=== PATIENT | male | born 1960 | race Caucasian/White ===

== ENCOUNTER 2020-04-02 12:50 | Inpatient (IN) | payer BC ==
[~2020-04-02] VITALS: Ht 167.6 cm; Wt 72.6 kg
[2020-04-02 12:57] VITALS: BP 96/51
[2020-04-02] MEDS ORDERED: MULTIVITAMIN-12 10 ML, THIAMINE 100 MG, MAGNESIUM SULFATE 50% 2,000 MG, FOLIC ACID 1 MG... IV ONE ×5 (13:25)
[2020-04-02] MEDS ORDERED: NACL 0.9% 1,000 ML IV ONE (13:25)
[2020-04-02 13:48] LABS: BASOPHILS % (AUTO) 0.6 % (0.0-2.0); HEMATOCRIT 29.8 % (36-52); HEMOGLOBIN 9.6 g/dL (12.0-18.0); LYMPHOCYTES # (AUTO) 0.3 K/uL (2.0-11.5); MEAN CORPUSCULAR HEMOGLOBIN 28 pg (27-31); MEAN CORPUSCULAR HGB CONC 32 g/dL (33-37); MEAN CORPUSCULAR VOLUME 87.7 fL (80-94); MONOCYTES # (AUTO) 0.4 K/uL (0.8-1.0); MONOCYTES % (AUTO) 6.8 % (1.7-9.3); NEUTROPHILS # (AUTO) 4.9 K/uL (1.8-7.7); NEUTROPHILS % (AUTO) 87.6 % (42.2-75.2); PLATELET COUNT (AUTO) 70 K/uL (140-450); RED CELL DISTRIBUTION WIDTH 25.3 % (11.6-13.7); WHITE BLOOD COUNT (AUTO) 5.6 K/uL (4.8-10.8)
[2020-04-02] MEDS ORDERED: MULTIVITAMIN-12 10 ML, THIAMINE 100 MG, MAGNESIUM SULFATE 50% 2,000 MG, FOLIC ACID 1 MG... IV SCH ×10 (14:00→20:10)
[2020-04-02 14:08] LABS: ALBUMIN 3.2 g/dL (3.4-5.0); ANION GAP 27.2 (8-16); ASPARTATE AMINOTRANSFERASE 329 U/L (15-37); CARBON DIOXIDE 18.7 mmol/L (21-32); CHLORIDE 101 mmol/L (98-107); CREATININE 1.7 mg/dL (0.6-1.3); GFR ARICAN-AMERICAN 53 mL/min (>90); GLUCOSE 164 mg/dL (74-106); LIPASE 2165 U/L (73-393); PROTHROMBIN TIME 19.8 secs (10.8-13.4); SODIUM SERUM 144 mmol/L (136-145); TOTAL BILIRUBIN 11.5 mg/dL (0.0-1.0); UREA NITROGEN, BLOOD 31 mg/dL (7-18)
[2020-04-02 14:15] LABS: POTASSIUM 2.9 mmol/L (3.5-5.1)
[2020-04-02] MEDS ORDERED: KCL 20 MEQ/WATER INJ PREMIX 100 ML IV ONE (14:25)
[2020-04-02 16:30] VITALS: BP 107/47
[2020-04-02 20:00] VITALS: BP 101/49
[2020-04-02] MEDS ORDERED: HYDROcodone/APAP 5/325 MG 1 TAB TAB PO PRN (20:00)
[2020-04-02] MEDS ORDERED: ACETAMINOPHEN 325 MG TAB PO PRN (20:00)
[2020-04-02] MEDS ORDERED: LORazepam 2 MG/ML VIAL IVP PRN (20:00)
[2020-04-02] MEDS ORDERED: LACTULOSE 20 GM/30 ML UDC PO SCH (20:00)
[2020-04-02] MEDS ORDERED: DEXT 5% /NACL 0.9% 1,000 ML IV SCH (20:00)
[2020-04-02] MEDS ORDERED: ONDANSETRON 4 MG/2 ML VIAL IVP PRN (20:00)
[2020-04-02] MEDS ORDERED: DILTIAZEM 25 MG/5 ML VIAL IVP PRN (21:00)
[2020-04-02] MEDS ORDERED: DIGOXIN 0.25 MG/ML AMP IV SCH (21:00)
[2020-04-02] MEDS ORDERED: DILTIAZEM 25 MG/5 ML VIAL IVP SCH (21:00)
[2020-04-02] MEDS: DEXT 5% / NACL 0.45% 1,000 ML IV SCH (23:56)
[2020-04-03] VITALS: BP 98/47
[2020-04-03 04:00] VITALS: BP 148/57
[2020-04-03 06:44] LABS: AMYLASE 138 U/L (25-115)
[2020-04-03 06:54] LABS: ALBUMIN 2.6 g/dL (3.4-5.0); ANION GAP 16.7 (8-16); CARBON DIOXIDE 25.8 mmol/L (21-32); CREATININE 0.7 mg/dL (0.6-1.3); TOTAL BILIRUBIN 10.4 mg/dL (0.0-1.0)
[2020-04-03 07:08] LABS: BASOPHILS % (AUTO) 0.5 % (0.0-2.0); EOSINOPHILS % (AUTO) 0.5 % (0.0-4.0); HEMATOCRIT 27.6 % (36-52); HEMOGLOBIN 8.8 g/dL (12.0-18.0); LYMPHOCYTES # (AUTO) 0.8 K/uL (2.0-11.5); LYMPHOCYTES % (AUTO) 20.7 % (20.5-51.1); MEAN CORPUSCULAR HEMOGLOBIN 28 pg (27-31); MEAN CORPUSCULAR HGB CONC 32 g/dL (33-37); MEAN CORPUSCULAR VOLUME 88.9 fL (80-94); MONOCYTES # (AUTO) 0.3 K/uL (0.8-1.0); MONOCYTES % (AUTO) 6.7 % (1.7-9.3); NEUTROPHILS # (AUTO) 2.8 K/uL (1.8-7.7); NEUTROPHILS % (AUTO) 71.6 % (42.2-75.2); PLATELET COUNT (AUTO) 58 K/uL (140-450); RED BLOOD CELL COUNT(AUTO) 3.11 MIL/uL (4.20-6.10); RED CELL DISTRIBUTION WIDTH 25.1 % (11.6-13.7); WHITE BLOOD COUNT (AUTO) 3.9 K/uL (4.8-10.8)
[2020-04-03 07:16] LABS: MAGNESIUM 0.8 mg/dL (1.8-2.4); POTASSIUM 2.5 mmol/L (3.5-5.1)
[2020-04-03 07:17] LABS: PHOSPHORUS 0.6 mg/dL (2.5-4.9)
[2020-04-03 07:18] LABS: LIPASE 2826 U/L (73-393)
[2020-04-03] MEDS ORDERED: NACL 0.9% 1,000 ML IV SCH (07:50)
[2020-04-03 08:00] VITALS: BP 110/63
[2020-04-03] MEDS ORDERED: MAG SULF 2000 MG/WATER PREMIX 50 ML IV SCH (08:00)
[2020-04-03] MEDS: DEXT 5% / NACL 0.45% 1,000 ML IV SCH ×2 (11:02→19:35)
[2020-04-03] MEDS ORDERED: POTASSIUM PHOSPHATE 30 MM in NACL 0.9% 500 ML IV SCH (11:30)
[2020-04-03 12:00] VITALS: BP 91/52
[2020-04-03 13:35] LABS: APPEARANCE,URINE HAZY (CLEAR); BILIRUBIN,URINE 3+ (NEGATIVE); BLOOD, URINE NEGATIVE (NEGATIVE); COLOR,URINE ORANGE (YELLOW); LEUKOCYTE ESTERASE ,URINE NEGATIVE (NEGATIVE); NITRITE, URINE NEGATIVE (NEGATIVE); PH,URINE 6.5 (5.0-9.0); UGLUCOSE TRACE (NEGATIVE)
[2020-04-03 13:50] LABS: RBC,URINE 0-5 /HPF (0-5)
[2020-04-03 16:00] VITALS: BP 109/53
[2020-04-03] MEDS: DILTIAZEM 25 MG/5 ML VIAL IVP PRN ×2 (18:32→23:21)
[2020-04-03 20:00] VITALS: BP 165/69
[2020-04-04] VITALS: BP 148/77
[2020-04-04 04:00] VITALS: BP 136/71
[2020-04-04] MEDS: DEXT 5% / NACL 0.45% 1,000 ML IV SCH (05:37)
[2020-04-04 07:15] LABS: WHITE BLOOD COUNT (AUTO) 3.9 K/uL (4.8-10.8)
[2020-04-04 07:33] LABS: MONOCYTES # (AUTO) 0.3 K/uL (0.8-1.0); RED CELL DISTRIBUTION WIDTH 25.6 % (11.6-13.7)
[2020-04-04 07:40] LABS: BASOPHILS % (AUTO) 0.3 % (0.0-2.0); EOSINOPHILS % (AUTO) 1.1 % (0.0-4.0); HEMATOCRIT 28.4 % (36-52); HEMOGLOBIN 9.1 g/dL (12.0-18.0); LYMPHOCYTES # (AUTO) 1.3 K/uL (2.0-11.5); LYMPHOCYTES % (AUTO) 33.2 % (20.5-51.1); MEAN CORPUSCULAR HEMOGLOBIN 29 pg (27-31); MEAN CORPUSCULAR HGB CONC 32 g/dL (33-37); MEAN CORPUSCULAR VOLUME 89.5 fL (80-94); MONOCYTES % (AUTO) 8.1 % (1.7-9.3); NEUTROPHILS # (AUTO) 2.2 K/uL (1.8-7.7); NEUTROPHILS % (AUTO) 57.3 % (42.2-75.2); PLATELET COUNT (AUTO) 66 K/uL (140-450); RED BLOOD CELL COUNT(AUTO) 3.17 MIL/uL (4.20-6.10)
[2020-04-04 08:00] VITALS: BP 129/64
[2020-04-04 08:19] LABS: AMYLASE 238 U/L (25-115); LIPASE 3364 U/L (73-393)
[2020-04-04 08:38] LABS: ALBUMIN 2.5 g/dL (3.4-5.0); ANION GAP 15.2 (8-16); CARBON DIOXIDE 27.3 mmol/L (21-32); CREATININE 0.6 mg/dL (0.6-1.3); PHOSPHORUS 1.7 mg/dL (2.5-4.9); TOTAL BILIRUBIN 9.7 mg/dL (0.0-1.0)
[2020-04-04 09:15] LABS: MAGNESIUM 0.7 mg/dL (1.8-2.4); POTASSIUM 2.5 mmol/L (3.5-5.1)
[2020-04-04] MEDS ORDERED: DEXT 5% / NACL 0.45% 1,000 ML IV SCH (10:35)
[2020-04-04] MEDS: MAG SULF 2000 MG/WATER PREMIX 100 ML IV SCH ×2 (11:03→14:10)
[2020-04-04 12:00] VITALS: BP 128/62
[2020-04-04 16:00] VITALS: BP 127/64
[2020-04-04] MEDS ORDERED: KCL 20 MEQ/WATER INJ PREMIX 200 ML IV SCH (17:00)
[2020-04-04] MEDS ORDERED: MAG SULF 2000 MG/WATER PREMIX 100 ML IV ONE (19:20)
[2020-04-04 20:00] VITALS: BP 130/64
[2020-04-04] MEDS: POTASSIUM CHL 40 MEQ/ D5-1/2NS 1,000 ML IV SCH (20:09)
[2020-04-05] VITALS: BP 124/68
[2020-04-05 04:00] VITALS: BP 123/63
[2020-04-05] MEDS: POTASSIUM CHL 40 MEQ/ D5-1/2NS 1,000 ML IV SCH (05:20)
[2020-04-05 06:24] LABS: HEMATOCRIT 29.1 % (36-52); HEMOGLOBIN 9.2 g/dL (12.0-18.0); MEAN CORPUSCULAR HEMOGLOBIN 29 pg (27-31); MEAN CORPUSCULAR HGB CONC 32 g/dL (33-37); MEAN CORPUSCULAR VOLUME 90.7 fL (80-94); PLATELET COUNT (AUTO) 63 K/uL (140-450); RED BLOOD CELL COUNT(AUTO) 3.21 MIL/uL (4.20-6.10); RED CELL DISTRIBUTION WIDTH 25.9 % (11.6-13.7); WHITE BLOOD COUNT (AUTO) 3.2 K/uL (4.8-10.8)
[2020-04-05 06:52] LABS: AMYLASE 283 U/L (25-115); LIPASE 3457 U/L (73-393)
[2020-04-05 06:55] LABS: ALBUMIN 2.4 g/dL (3.4-5.0); ANION GAP 9.6 (8-16); CREATININE 0.7 mg/dL (0.6-1.3); MAGNESIUM 1.7 mg/dL (1.8-2.4); PHOSPHORUS 3.3 mg/dL (2.5-4.9); TOTAL BILIRUBIN 8.2 mg/dL (0.0-1.0)
[2020-04-05 08:00] VITALS: BP 121/75
[2020-04-05 08:42] LABS: POTASSIUM 2.6 mmol/L (3.5-5.1)
[2020-04-05 08:55] LABS: BASOPHILS % (MANUAL) 0 % (0-2); EOSINOPHILS % (MANUAL) 0 % (0-4); LYMPHOCYTES % (MANUAL) 18 % (20-46); MONOCYTES % (MANUAL) 7 % (5-12)
[2020-04-05] MEDS ORDERED: MAG SULF 2000 MG/WATER PREMIX 50 ML IV SCH ×2 (09:00→09:30)
[2020-04-05] MEDS ORDERED: MULTIVIT/MIN/CA/FE/FA 1 TAB PO SCH (11:00)
[2020-04-05] MEDS ORDERED: POTASSIUM CHLORIDE 20% 40 MEQ/15 ML UDC GT SCH (11:00)
[2020-04-05] MEDS ORDERED: SPIRONOLACTONE 50 MG TAB PO SCH (11:00)
[2020-04-05] MEDS ORDERED: THIAMINE 100 MG TAB PO SCH (11:00)
[2020-04-05] MEDS ORDERED: KCL 20 MEQ/WATER INJ PREMIX 200 ML IV SCH (11:30)
[2020-04-05 12:00] VITALS: BP 120/72
[2020-04-05] MEDS: LACTULOSE 20 GM/30 ML UDC PO SCH ×2 (12:22→18:10)
[2020-04-05] MEDS: CYANOCOBALAMIN 1,000 MCG TAB PO SCH (14:42)
[2020-04-05 16:00] VITALS: BP 104/58
[2020-04-05] MEDS ORDERED: SODIUM PHOSPHATE 30 MMOLE in NACL 0.9% 500 ML IV SCH (16:00)
[2020-04-05 20:00] VITALS: BP 112/60
[2020-04-05] MEDS: SPIRONOLACTONE 50 MG TAB PO SCH (21:23)
[2020-04-05] MEDS: RIFAXIMIN 550 MG TAB PO SCH (21:23)
[2020-04-06] VITALS: BP 127/67
[2020-04-06] MEDS: POTASSIUM CHL 40 MEQ/ D5-1/2NS 1,000 ML IV SCH ×4 (00:39→20:50)
[2020-04-06 04:00] VITALS: BP 122/65
[2020-04-06 07:12] LABS: HEPATITIS A ANTIBODY IGM Negative (Negative); HEPATITIS B CORE AB TOTAL Positive (Negative); HEPATITIS B SURFACE ANTIBODY Non Reactive (.); HEPATITIS B SURFACE ANTIGEN Negative (Negative)
[2020-04-06 07:42] LABS: HEMATOCRIT 30.6 % (36-52); HEMOGLOBIN 9.6 g/dL (12.0-18.0); MEAN CORPUSCULAR HEMOGLOBIN 29 pg (27-31); MEAN CORPUSCULAR HGB CONC 32 g/dL (33-37); MEAN CORPUSCULAR VOLUME 91.8 fL (80-94); PLATELET COUNT (AUTO) 71 K/uL (140-450); RED BLOOD CELL COUNT(AUTO) 3.33 MIL/uL (4.20-6.10); RED CELL DISTRIBUTION WIDTH 27.6 % (11.6-13.7); WHITE BLOOD COUNT (AUTO) 4.2 K/uL (4.8-10.8)
[2020-04-06 07:58] LABS: ANION GAP 13.6 (8-16); CARBON DIOXIDE 26.7 mmol/L (21-32); CREATININE 0.8 mg/dL (0.6-1.3)
[2020-04-06 08:00] VITALS: BP 112/59
[2020-04-06 08:04] LABS: MAGNESIUM 1.3 mg/dL (1.8-2.4); PHOSPHORUS 2.7 mg/dL (2.5-4.9)
[2020-04-06 09:07] LABS: LYMPHOCYTES % (MANUAL) 15 % (20-46)
[2020-04-06 09:08] LABS: MONOCYTES % (MANUAL) 9 % (5-12)
[2020-04-06 09:18] LABS: POTASSIUM 2.3 mmol/L (3.5-5.1)
[2020-04-06] MEDS: CYANOCOBALAMIN 1,000 MCG TAB PO SCH (09:38)
[2020-04-06] MEDS: MULTIVIT/MIN/CA/FE/FA 1 TAB PO SCH (09:38)
[2020-04-06] MEDS: SPIRONOLACTONE 50 MG TAB PO SCH ×2 (09:39→21:18)
[2020-04-06] MEDS: THIAMINE 100 MG TAB PO SCH (09:39)
[2020-04-06] MEDS: LACTULOSE 20 GM/30 ML UDC PO SCH (09:39)
[2020-04-06] MEDS: RIFAXIMIN 550 MG TAB PO SCH ×2 (09:39→21:18)
[2020-04-06] MEDS ORDERED: POTASSIUM CHLORIDE 20% 40 MEQ/15 ML UDC GT SCH (10:30)
[2020-04-06] MEDS ORDERED: LACTULOSE 20 GM/30 ML UDC PO SCH (10:30)
[2020-04-06] MEDS ORDERED: MAG SULF 2000 MG/WATER PREMIX 100 ML IV SCH (10:30)
[2020-04-06] MEDS ORDERED: KCL 20 MEQ/WATER INJ PREMIX 200 ML IV SCH ×2 (10:30→14:00)
[2020-04-06] MEDS ORDERED: LORazepam 2 MG/ML VIAL IVP SCH (10:35)
[2020-04-06] MEDS: POTASSIUM CHLORIDE 20% 40 MEQ/15 ML UDC GT SCH (15:20)
[2020-04-06 16:00] VITALS: BP 114/69
[2020-04-06] MEDS ORDERED: LORazepam 2 MG/ML VIAL ONE (16:32)
[2020-04-06 20:00] VITALS: BP 127/62
[2020-04-06] MEDS ORDERED: CRUSHER, PILL MC ONE (21:30)
[2020-04-07] VITALS (9 sets, daily range): BP systolic 100–128; BP diastolic 51–71
[2020-04-07 05:23] LABS: HEMATOCRIT 31.9 % (36-52); MEAN CORPUSCULAR HEMOGLOBIN 29 pg (27-31); MEAN CORPUSCULAR HGB CONC 32 g/dL (33-37); MEAN CORPUSCULAR VOLUME 92.8 fL (80-94); PLATELET COUNT (AUTO) 79 K/uL (140-450); RED BLOOD CELL COUNT(AUTO) 3.43 MIL/uL (4.20-6.10); RED CELL DISTRIBUTION WIDTH 28.8 % (11.6-13.7); WHITE BLOOD COUNT (AUTO) 5.3 K/uL (4.8-10.8)
[2020-04-07 05:48] LABS: ANION GAP 14.1 (8-16); CARBON DIOXIDE 24.2 mmol/L (21-32); CREATININE 0.9 mg/dL (0.6-1.3)
[2020-04-07] MEDS ORDERED: POTASSIUM CHLORIDE 40 MEQ, LIDOCAINE MPF 1% 25 MG in NACL 0.9% 250 ML IV ONE (06:40)
[2020-04-07 06:45] LABS: POTASSIUM 2.3 mmol/L (3.5-5.1)
[2020-04-07 07:19] LABS: BASOPHILS % (MANUAL) 0 % (0-2); EOSINOPHILS % (MANUAL) 0 % (0-4); LYMPHOCYTES % (MANUAL) 12 % (20-46); MONOCYTES % (MANUAL) 8 % (5-12)
[2020-04-07 07:36] LABS: MAGNESIUM 1.3 mg/dL (1.8-2.4); PHOSPHORUS 3.4 mg/dL (2.5-4.9)
[2020-04-07] MEDS ORDERED: POTASSIUM CHLORIDE 40 MEQ, LIDOCAINE MPF 1% 25 MG in NACL 0.9% 250 ML IV SCH ×2 (09:00→16:00)
[2020-04-07] MEDS ORDERED: LACTULOSE 20 GM/30 ML UDC PO SCH (09:00)
[2020-04-07] MEDS: SPIRONOLACTONE 50 MG TAB PO SCH ×2 (09:08→21:00)
[2020-04-07] MEDS: MULTIVIT/MIN/CA/FE/FA 1 TAB PO SCH (09:09)
[2020-04-07] MEDS: CYANOCOBALAMIN 1,000 MCG TAB PO SCH (09:10)
[2020-04-07] MEDS: THIAMINE 100 MG TAB PO SCH (09:10)
[2020-04-07] MEDS: RIFAXIMIN 550 MG TAB PO SCH ×2 (09:11→21:00)
[2020-04-07] MEDS: POTASSIUM CHLORIDE 20% 40 MEQ/15 ML UDC GT SCH ×4 (09:12→17:21)
[2020-04-07 13:25] LABS: ALBUMIN 2.3 g/dL (3.4-5.0); BILIRUBIN,DIRECT 6.2 mg/dL (0.0-0.3); TOTAL BILIRUBIN 9.4 mg/dL (0.0-1.0)
[2020-04-07] MEDS ORDERED: KCL 20 MEQ/WATER INJ PREMIX 200 ML IV SCH (13:30)
[2020-04-07] MEDS ORDERED: POTASSIUM CHLORIDE 20 MEQ in NACL 0.45% 1,000 ML IV SCH (13:30)
[2020-04-07] MEDS ORDERED: MAG SULF 2000 MG/WATER PREMIX 100 ML IV SCH (13:30)
[2020-04-07] MEDS: POTASSIUM CHL 40 MEQ/ D5-1/2NS 1,000 ML IV SCH (15:10)
[2020-04-07 15:26] LABS: ANION GAP 17.7 (8-16); CREATININE 0.9 mg/dL (0.6-1.3)
[2020-04-07 15:31] LABS: POTASSIUM 2.7 mmol/L (3.5-5.1)
[2020-04-07] MEDS: Z-GUARD PASTE TP SCH (16:30)
[2020-04-07] MEDS: PIPERACILLIN/TAZOBACTAM 3.375 GM in DEXTROSE 5% 50 ML IV SCH (17:21)
[2020-04-07] MEDS ORDERED: POTASSIUM CHLORIDE 10 MEQ TABER PO SCH (21:00)
[2020-04-07] MEDS: MAGNESIUM OXIDE 400 MG TAB PO SCH (21:00)
[2020-04-08] VITALS (12 sets, daily range): BP systolic 93–137; BP diastolic 51–109
[2020-04-08] MEDS: PIPERACILLIN/TAZOBACTAM 3.375 GM in DEXTROSE 5% 50 ML IV SCH ×3 (00:45→11:49)
[2020-04-08] MEDS: Z-GUARD PASTE TP SCH ×2 (01:00→14:00)
[2020-04-08] MEDS: POTASSIUM CHL 40 MEQ/ D5-1/2NS 1,000 ML IV SCH (03:21)
[2020-04-08 06:16] LABS: HEMATOCRIT 30.8 % (36-52); HEMOGLOBIN 9.5 g/dL (12.0-18.0); MEAN CORPUSCULAR HEMOGLOBIN 30 pg (27-31); MEAN CORPUSCULAR HGB CONC 31 g/dL (33-37); PLATELET COUNT (AUTO) 106 K/uL (140-450); RED BLOOD CELL COUNT(AUTO) 3.18 MIL/uL (4.20-6.10); RED CELL DISTRIBUTION WIDTH 27.9 % (11.6-13.7); WHITE BLOOD COUNT (AUTO) 4.5 K/uL (4.8-10.8)
[2020-04-08 06:20] LABS: ANION GAP 13.5 (8-16); CARBON DIOXIDE 25.4 mmol/L (21-32); CREATININE 0.8 mg/dL (0.6-1.3)
[2020-04-08 06:24] LABS: AMYLASE 136 U/L (25-115); LIPASE 1058 U/L (73-393)
[2020-04-08 06:25] LABS: MAGNESIUM 1.6 mg/dL (1.8-2.4)
[2020-04-08 06:35] LABS: POTASSIUM 2.9 mmol/L (3.5-5.1)
[2020-04-08 07:59] LABS: EOSINOPHILS % (MANUAL) 2 % (0-4); LYMPHOCYTES % (MANUAL) 17 % (20-46); MONOCYTES % (MANUAL) 11 % (5-12)
[2020-04-08] MEDS ORDERED: KCL 20 MEQ/WATER INJ PREMIX 200 ML IV SCH (08:15)
[2020-04-08] MEDS: POTASSIUM CHLORIDE 20% 40 MEQ/15 ML UDC GT SCH ×3 (08:33→17:37)
[2020-04-08] MEDS: MAGNESIUM OXIDE 400 MG TAB PO SCH (08:34)
[2020-04-08] MEDS: SPIRONOLACTONE 50 MG TAB PO SCH ×2 (08:34→20:20)
[2020-04-08] MEDS: THIAMINE 100 MG TAB PO SCH (08:35)
[2020-04-08] MEDS: POTASSIUM CHLORIDE 40 MEQ in DEXTROSE 5% 1,000 ML IV SCH ×2 (08:56→22:56)
[2020-04-08] MEDS ORDERED: Z-GUARD PASTE TP SCH (10:49)
[2020-04-08] MEDS: CYANOCOBALAMIN 1,000 MCG TAB PO SCH (10:55)
[2020-04-08] MEDS: RIFAXIMIN 550 MG TAB PO SCH ×2 (10:55→20:20)
[2020-04-08] MEDS ORDERED: LACTULOSE 20 GM/30 ML UDC PO SCH (12:00)
[2020-04-08] MEDS: MAG SULF 2000 MG/WATER PREMIX 50 ML IV SCH ×2 (14:02→16:05)
[2020-04-08 17:28] LABS: ANION GAP 14.8 (8-16); CARBON DIOXIDE 23.2 mmol/L (21-32)
[2020-04-08] MEDS ORDERED: KCL 20 MEQ/WATER INJ PREMIX 200 ML IV ONE (19:15)
[2020-04-09] VITALS (12 sets, daily range): BP systolic 104–137; BP diastolic 59–74
[2020-04-09] MEDS: Z-GUARD PASTE TP SCH ×2 (01:58→13:17)
[2020-04-09 06:37] LABS: ALBUMIN 1.9 g/dL (3.4-5.0); ANION GAP 18.1 (8-16); CARBON DIOXIDE 19.5 mmol/L (21-32); CREATININE 0.9 mg/dL (0.6-1.3); MAGNESIUM 1.3 mg/dL (1.8-2.4); PHOSPHORUS 1.8 mg/dL (2.5-4.9); POTASSIUM 3.6 mmol/L (3.5-5.1); TOTAL BILIRUBIN 8.4 mg/dL (0.0-1.0)
[2020-04-09 07:04] LABS: HEMATOCRIT 31.9 % (36-52); MEAN CORPUSCULAR HEMOGLOBIN 30 pg (27-31); MEAN CORPUSCULAR VOLUME 94.7 fL (80-94); RED BLOOD CELL COUNT(AUTO) 3.37 MIL/uL (4.20-6.10); RED CELL DISTRIBUTION WIDTH 26.8 % (11.6-13.7); WHITE BLOOD COUNT (AUTO) 4.4 K/uL (4.8-10.8)
[2020-04-09] MEDS: POTASSIUM CHLORIDE 20% 40 MEQ/15 ML UDC GT SCH ×3 (08:32→17:19)
[2020-04-09] MEDS: THIAMINE 100 MG TAB PO SCH (08:32)
[2020-04-09] MEDS: SPIRONOLACTONE 50 MG TAB PO SCH ×2 (08:33→19:57)
[2020-04-09] MEDS: MULTIVITAMIN 1 TAB PO SCH (08:33)
[2020-04-09] MEDS: LACTULOSE 20 GM/30 ML UDC PO SCH (08:34)
[2020-04-09] MEDS: MAG SULF 2000 MG/WATER PREMIX 100 ML IV SCH ×2 (08:52→11:04)
[2020-04-09] MEDS: CYANOCOBALAMIN 1,000 MCG TAB PO SCH (08:56)
[2020-04-09] MEDS: RIFAXIMIN 550 MG TAB PO SCH ×2 (08:57→19:55)
[2020-04-09] MEDS: MAGNESIUM OXIDE 400 MG TAB PO SCH ×2 (09:00→19:55)
[2020-04-09] MEDS: SODIUM PHOS / POTASSIUM PHOS 1 PKT PDR PO SCH ×2 (09:01→19:54)
[2020-04-09 09:05] LABS: MEAN CORPUSCULAR HGB CONC 31 g/dL (33-37)
[2020-04-09 09:27] LABS: PLATELET COUNT (AUTO) 137 K/uL (140-450)
[2020-04-09 09:28] LABS: EOSINOPHILS % (MANUAL) 1 % (0-4); LYMPHOCYTES % (MANUAL) 20 % (20-46); MONOCYTES % (MANUAL) 3 % (5-12)
[2020-04-09 09:31] LABS: PROTHROMBIN TIME 15.2 secs (10.8-13.4)
[2020-04-09] MEDS: POTASSIUM CHLORIDE 40 MEQ in DEXTROSE 5% 1,000 ML IV SCH ×2 (10:12→14:03)
[2020-04-09 18:32] LABS: ANION GAP 14.8 (8-16); CARBON DIOXIDE 21.2 mmol/L (21-32); CREATININE 0.8 mg/dL (0.6-1.3)
[2020-04-10] VITALS: BP 100/61
[2020-04-10] MEDS: Z-GUARD PASTE TP SCH ×2 (01:05→13:12)
[2020-04-10 04:00] VITALS: BP 113/65
[2020-04-10 06:35] LABS: ANION GAP 15.4 (8-16); CARBON DIOXIDE 22.4 mmol/L (21-32); CREATININE 0.9 mg/dL (0.6-1.3); POTASSIUM 3.8 mmol/L (3.5-5.1)
[2020-04-10 06:36] LABS: ALBUMIN 2.2 g/dL (3.4-5.0); MAGNESIUM 1.7 mg/dL (1.8-2.4); PHOSPHORUS 3.8 mg/dL (2.5-4.9); TOTAL BILIRUBIN 9.3 mg/dL (0.0-1.0)
[2020-04-10 07:25] LABS: HEMATOCRIT 34.7 % (36-52); HEMOGLOBIN 10.8 g/dL (12.0-18.0); MEAN CORPUSCULAR HEMOGLOBIN 30 pg (27-31); MEAN CORPUSCULAR HGB CONC 31 g/dL (33-37); MEAN CORPUSCULAR VOLUME 96.2 fL (80-94); PLATELET COUNT (AUTO) 167 K/uL (140-450); RED BLOOD CELL COUNT(AUTO) 3.61 MIL/uL (4.20-6.10); RED CELL DISTRIBUTION WIDTH 26.6 % (11.6-13.7); WHITE BLOOD COUNT (AUTO) 7.9 K/uL (4.8-10.8)
[2020-04-10 08:00] VITALS: BP 102/54
[2020-04-10] MEDS: LACTULOSE 20 GM/30 ML UDC PO SCH (09:00)
[2020-04-10] MEDS: POTASSIUM CHLORIDE 20% 40 MEQ/15 ML UDC GT SCH ×3 (10:00→17:10)
[2020-04-10] MEDS: MAGNESIUM OXIDE 400 MG TAB PO SCH (10:01)
[2020-04-10] MEDS: RIFAXIMIN 550 MG TAB PO SCH (10:02)
[2020-04-10] MEDS: MULTIVITAMIN 1 TAB PO SCH (10:02)
[2020-04-10] MEDS: CYANOCOBALAMIN 1,000 MCG TAB PO SCH (10:03)
[2020-04-10] MEDS: SODIUM PHOS / POTASSIUM PHOS 1 PKT PDR PO SCH (10:03)
[2020-04-10] MEDS: SPIRONOLACTONE 50 MG TAB PO SCH (10:04)
[2020-04-10] MEDS: THIAMINE 100 MG TAB PO SCH (10:05)
[2020-04-10 10:16] LABS: LYMPHOCYTES % (MANUAL) 12 % (20-46); MONOCYTES % (MANUAL) 2 % (5-12)
[2020-04-10 12:00] VITALS: BP 115/66
[2020-04-10] MEDS ORDERED: MAG SULF 2000 MG/WATER PREMIX 50 ML IV SCH (13:00)
[2020-04-10 16:00] VITALS: BP 113/65
[2020-04-10] MEDS: POTASSIUM CHLORIDE 40 MEQ in DEXTROSE 5% 1,000 ML IV SCH (16:06)
[2020-04-10 18:19] VITALS: BP 113/65
== END 2020-04-10 19:15 | DRG 441 ==
LOC: MED 12:50 → MTU 15:20 → MIC 04-07 14:08 → MTU 04-10 07:00
PROVIDERS: ADMIT Preventive Medicine Preventive Medicine/Occupational Environmental Medicine; ATTEND Preventive Medicine Preventive Medicine/Occupational Environmental Medicine
DX: K72.90 Hepatic failure, unspecified without coma (principal); K85.20 Alcohol induced acute pancreatitis without necrosis or infection; G93.41 Metabolic encephalopathy; D68.4 Acquired coagulation factor deficiency; D68.59 Other primary thrombophilia; E87.0 Hyperosmolality and hypernatremia; N17.9 Acute kidney failure, unspecified; D61.818 Other pancytopenia; N13.30 Unspecified hydronephrosis; E66.9 Obesity, unspecified; E83.42 Hypomagnesemia; E83.51 Hypocalcemia; E86.0 Dehydration; E87.6 Hypokalemia; E88.09 Other disorders of plasma-protein metabolism, not elsewhere classified; F10.10 Alcohol abuse, uncomplicated; F17.200 Nicotine dependence, unspecified, uncomplicated; K70.30 Alcoholic cirrhosis of liver without ascites; N18.9 Chronic kidney disease, unspecified; F04 Amnestic disorder due to known physiological condition; Z90.49 Acquired absence of other specified parts of digestive tract; I48.91 Unspecified atrial fibrillation; Y90.0 Blood alcohol level of less than 20 mg/100 ml; R73.9 Hyperglycemia, unspecified; Z68.25 Body mass index [BMI] 25.0-25.9, adult
CPT/HCPCS: 36415; 70450; 71045; 76700; 80048; 80053; 80076; 81001; 82140; 82150; 82272; 82306; 82607; 82746; 82948; 83036; 83605; 83690; 83735; 83880; 83930; 83935; 84100; 84133; 84484; 85025; 85045; 85610; 85730; 86704; 86706; 86708; 86709; 86803; 86886; 86900; 86901; 87081; 87086; 87340; 93005; 96365; 96366; 99291; A9153; G0482; J1160; J2001; J2060; J2405; J2543; J3411; J3420; J3475; J3480; J3490; J7030; J7060; Q0092; Q9967